=== PATIENT | female | born 1985 | race African-American/Black ===

== ENCOUNTER 2016-11-05 04:33 | Emergency (ER) | payer OTHER ==
[~2016-11-05] VITALS: Ht 154.9 cm; Wt 73.0 kg
[~2016-11-05 04:33] MED LIST: ALBUTEROL SULF8.5 GM INH; AMOXICILLIN500 MG ORAL; AZITHROMYC200 MG/5 M ORAL; AZITHROMYCIN250 MG ORAL; CLARITIN10 M2 ORAL; FLONASE1 SPRAYS NASAL; IBUPROFEN600 MG ORAL; KEFLEX500 MG ORAL; NITROFURANTOIN100 M2 ORAL; NKM; NORCO 5-325 TA1 EACH ORAL; PENICILLIN V P500 MG PO; PEPCID40 MG PO; PRENATA CHEWAB1 EACH PO; TYLENOL EXTRA500 MG ORAL; ZITHROMAX250 MG ORAL; ZYRTEC10 MG ORAL
[2016-11-05 04:53] VITALS: BP 121/79
[2016-11-05 05:39] LABS: MEAN CORPUSCULAR HEMOGLOBIN 21.9 PG (27.0-31.0); MEAN CORPUSCULAR HGB CONC 30.6 G/DL (32.0-36.0); MEAN CORPUSCULAR VOLUME 72 FL (80-99); PLATELET COUNT 79 K/UL (150-450); RED BLOOD COUNT 3.61 M/UL (4.20-5.40); RED CELL DISTRIBUTION WIDTH 14.7 % (11.6-14.8); WHITE BLOOD COUNT 3.5 K/UL (4.8-10.8)
[2016-11-05 05:54] LABS: ALANINE AMINOTRANSFERASE 14 U/L (3-33); ALBUMIN/GLOBULIN RATIO 1.2 (1.0-2.7); ANION GAP 16 (5-15); ASPARTATE AMINO TRANSFERASE 28 U/L (5-40); CALCIUM 9.2 mg/dL (8.6-10.2); CARBON DIOXIDE 23 mEQ/L (20-30); CHLORIDE 97 mEQ/L (98-107); CREATININE 0.7 mg/dL (0.5-0.9); GLOMERULAR FILTRATION RATE > 60 mL/min (>60); HEMOLYSIS 120; POTASSIUM 4.6 mEQ/L (3.4-4.9); SODIUM 136 mEQ/L (135-145); TOTAL PROTEIN 7.1 g/dL (6.6-8.7); TROPONIN I < 0.30 ng/mL (<=0.30)
[2016-11-05] MEDS: DuoNeb 0.5-3(2.5)mg/3ml neb HHN ONE ×2 (06:02→06:55)
[2016-11-05 06:04] LABS: CKMB < 1.5 ng/mL (< 3.8)
--- NOTE | 2016-11-05 06:29 | Emergency Room Report ---
History of Present Illness General Chief Complaint: Chest Pain Source: Patient (Jeff Bedolla) Present Illness HPI Patient is a 31-year-old female who presented after increased chest pressure. The patient intermittent symptoms of the past 2 days. The patient reported having increased palpitations as well as shortness of breath and chest tightness while at work. Patient had been having any vomiting or diarrhea. She denies any bleeding. Denied any fever cough. She denied prior history of asthma or any leg pain or swelling. (Jeff Bedolla) Allergies: Coded Allergies: No Known Allergies (Unverified , 08/29/12) Patient History Past Medical History: see triage record Last Menstrual Period: October Reviewed Nursing Documentation: PMH: Agreed, PSxH: Agreed (Jeff Bedolla) Nursing Documentation-PMH Past Medical History: No Stated History Hx Hypertension: No Hx Diabetes: No (Jeff Bedolla) Review of Systems All Other Systems: negative except mentioned in HPI (Jeff Bedolla) Physical Exam Vital Signs Date Time Temp Pulse Resp B/P Pulse Ox O2 Delivery O2 Flow Rate FiO2 11/05/16 04:37 97.5 81 16 118/85 100 Room Air Sp02 EP Interpretation: reviewed, normal General Appearance: normal inspection, well appearing, no apparent distress, alert, GCS 15 Head: atraumatic ENT: normal ENT inspection, hearing grossly normal, normal voice Neck: normal inspection, full range of motion, supple, no bony tend Respiratory: normal inspection, lungs clear, normal breath sounds, no respiratory distress, no retraction, no wheezing Cardiovascular #1: regular rate, rhythm, no edema Gastrointestinal: normal inspection, normal bowel sounds, non tender, soft, no guarding, no hernia Genitourinary: no CVA tenderness Musculoskeletal: normal inspection, back normal, normal range of motion Neurologic: normal inspection, alert, oriented x3, responsive, councilperson III-XII nml as tested, speech normal Psychiatric: normal inspection, judgement/insight normal, mood/affect normal Skin: normal inspection, normal color, no rash (Jeff Bedolla) Medical Decision Making Diagnostic Impression: Primary Impression: Chest pain Additional Impressions: Anemia Pancytopenia ER Course Patient presented for chest pain. Differential diagnosis included but was not limited to acute coronary syndrome, pulmonary embolism, pneumonia, aortic dissection, shingles, pneumothorax, aortic dissection, esophageal rupture, pericarditis. Because of complexity of patient's case laboratory testing and imaging studies were ordered. The patient showed no cardiac risk factors however EKG showed some slight inferior ST depression is normal sinus rhythm without acute T wave. Laboratory testing showed evidence of pancytopenia. The patient's hemoglobin was less than 8. The patient has no prior history consistent with pancytopenia.Patient was noted to be significantly anemic. Patient's symptoms are consistent with anemia related ischemia. Patient was endorsed to Dr. Gonzalez. The patient will likely be transferred. Labs Test 11/05/16 05:22 White Blood Count 3.5 K/UL (4.8-10.8) Red Blood Count 3.61 M/UL (4.20-5.40) Hemoglobin 7.9 G/DL (12.0-16.0) Hematocrit 25.9 % (37.0-47.0) Mean Corpuscular Volume 72 FL (80-99) Mean Corpuscular Hemoglobin 21.9 PG (27.0-31.0) Mean Corpuscular Hemoglobin Concent 30.6 G/DL (32.0-36.0) Red Cell Distribution Width 14.7 % (11.6-14.8) Platelet Count 79 K/UL (150-450) Mean Platelet Volume 8.0 FL (6.5-10.1) Neutrophils (%) (Auto) % (45.0-75.0) Lymphocytes (%) (Auto) % (20.0-45.0) Monocytes (%) (Auto) % (1.0-10.0) Eosinophils (%) (Auto) % (0.0-3.0) Basophils (%) (Auto) % (0.0-2.0) D-Dimer < 100 ng/mL (<500) Urine HCG, Qualitative Negative Sodium Level 136 mEQ/L (135-145) Potassium Level 4.6 mEQ/L (3.4-4.9) Chloride Level 97 mEQ/L (98-107) Carbon Dioxide Level 23 mEQ/L (20-30) Anion Gap 16 (5-15) Blood Urea Nitrogen 10 mg/dL (7-23) Creatinine 0.7 mg/dL (0.5-0.9) Estimat Glomerular Filtration Rate > 60 mL/min (>60) Glucose Level 89 mg/dL (74-106) Calcium Level 9.2 mg/dL (8.6-10.2) Total Bilirubin 0.4 mg/dL (0.0-1.2) Aspartate Amino Transf (AST/SGOT) 28 U/L (5-40) Alanine Aminotransferase (ALT/SGPT) 14 U/L (3-33) Alkaline Phosphatase 47 U/L (35-104) Total Creatine Kinase 103 U/L (26-140) Creatine Kinase MB < 1.5 ng/mL (< 3.8) Creatine Kinase MB Relative Index 1.4 Troponin I < 0.30 ng/mL (<=0.30) Total Protein 7.1 g/dL (6.6-8.7) Albumin 3.9 g/dL (3.5-5.2) Globulin 3.2 g/dL Albumin/Globulin Ratio 1.2 (1.0-2.7) Urine Opiates Screen Negative (NEGATIVE) Urine Barbiturates Screen Negative (NEGATIVE) Phencyclidine (PCP) Screen Negative (NEGATIVE) Urine Amphetamines Screen Negative (NEGATIVE) Urine Benzodiazepines Screen Negative (NEGATIVE) Urine Cocaine Screen Negative (NEGATIVE) Urine Marijuana (THC) Screen Negative (NEGATIVE) (Jeff Bedolla) ER Course Received signout from Dr Bedolla to endorse patient for transfer. Dr Huff accepted patient for transfer to [facility] at 822am Patient remains stable in ED (WESLEY GONZALEZ M.D.) EKG Diagnostic Results Rate: normal Rhythm: NSR ST Segments: no acute changes (Jeff Bedolla) Last Vital Signs Date Time Temp Pulse Resp B/P Pulse Ox O2 Delivery O2 Flow Rate FiO2 11/05/16 04:53 81 16 Room Air 11/05/16 04:53 97.5 121/79 100 Status: unchanged (Jeff Bedolla) Status: improved (WESLEY GONZALEZ M.D.) Disposition: XFER SHT-TRM HOSP Condition: Serious Referrals: [facility],REFERRING (PCP) Jeff Bedolla November 05, 2016 06:29 WESLEY GONZALEZ M.D. November 05, 2016 08:22
[2016-11-05 07:43] VITALS: BP 121/66
--- NOTE | 2016-11-05 08:45 | Diagnostic Imaging Report ---
Indication: Shortness of breath Technique: Single AP view of the chest. Findings: Comparison: None. The bones and extra pulmonary soft tissues, cardiomediastinal silhouette, pulmonary vasculature and parenchyma, and pleural surfaces are unremarkable. IMPRESSION: Negative AP chest.
[2016-11-05 09:30] VITALS: BP 123/76
[2016-11-05 11:32] VITALS: BP 125/72
[2016-11-05 11:39] VITALS: BP 125/72
--- NOTE | 2016-11-05 15:57 | Cardiology Report ---
APPROVED REPORT EKG Measurement Heart [id number] Normal sinus rhythm Nonspecific T wave abnormality Abnormal ECG
== END 2016-11-05 11:47 | disposition short-term general hospital (02) ==
LOC: EMR 04:55
DX: R07.9 Chest pain, unspecified (principal); D64.9 Anemia, unspecified; D61.818 Other pancytopenia
CPT/HCPCS: 36415; 71010; 80053; 80300; 81025; 82550; 82553; 84484; 85025; 85379; 93005; 94640; 94664; J7620

== ENCOUNTER 2016-11-10 23:45 | Emergency (ER) | payer OTHER ==
[~2016-11-10] VITALS: Ht 154.9 cm; Wt 72.6 kg
[2016-11-11] MEDS ORDERED: IRON325 M1 PO (00:04)
[2016-11-11 00:15] VITALS: BP 123/84
[2016-11-11] MEDS ORDERED: Metoclopramide 10mg/2ml Inj IVP ONE (00:45)
[2016-11-11] MEDS ORDERED: Morphine Sulfate 2mg/ml Inj IVP ONE (00:45)
[2016-11-11] MEDS ORDERED: DiphenhydrAMINE 50mg/ml Inj IVP ONE (00:45)
[2016-11-11 01:06] LABS: APPEARANCE,URINE CLEAR; KETONES,URINE NEGATIVE (NEGATIVE); LEUKOCYTE ESTERASE ,URINE 1+ (NEGATIVE); NITRITE,URINE NEGATIVE (NEGATIVE); PH,URINE 6.5 (4.5-8.0); PROTEIN,URINE 2+ (NEGATIVE); UROBILINOGEN,URINE NORMAL MG/DL (0.0-1.0)
[2016-11-11 01:09] LABS: BASOPHILS % (AUTO) 0.2 % (0.0-2.0); EOSINOPHILS % (AUTO) 0.5 % (0.0-3.0); LYMPHOCYTES % (AUTO) 15.5 % (20.0-45.0); MEAN CORPUSCULAR HGB CONC 31.3 G/DL (32.0-36.0); MEAN CORPUSCULAR VOLUME 73 FL (80-99); MEAN PLATELET VOLUME 6.5 FL (6.5-10.1); MONOCYTES % (AUTO) 6.2 % (1.0-10.0); NEUTROPHILS % (AUTO) 77.6 % (45.0-75.0); PLATELET COUNT 200 K/UL (150-450); RED BLOOD COUNT 3.96 M/UL (4.20-5.40); RED CELL DISTRIBUTION WIDTH 17.3 % (11.6-14.8); WHITE BLOOD COUNT 9.3 K/UL (4.8-10.8)
[2016-11-11 01:20] LABS: BACTERIA,URINE FEW /HPF; MUCUS,URINE MANY /LPF (NONE/OCC); SQUAMOUS EPITHELIAL CELL,UR MODERATE /LPF (NONE/OCC)
[2016-11-11 01:21] LABS: ALANINE AMINOTRANSFERASE 25 U/L (3-33); ALBUMIN/GLOBULIN RATIO 1.2 (1.0-2.7); ANION GAP 18 (5-15); ASPARTATE AMINO TRANSFERASE 20 U/L (5-40); CALCIUM 9.1 mg/dL (8.6-10.2); CARBON DIOXIDE 23 mEQ/L (20-30); CHLORIDE 98 mEQ/L (98-107); CREATININE 0.5 mg/dL (0.5-0.9); GLOMERULAR FILTRATION RATE > 60 mL/min (>60); HEMOLYSIS 2; LIPASE 25 U/L (< 60); POTASSIUM 3.9 mEQ/L (3.4-4.9); SODIUM 139 mEQ/L (135-145); TOTAL PROTEIN 7.7 g/dL (6.6-8.7)
[2016-11-11] MEDS ORDERED: ACETAMINOPHEN-1 EAC1 ORAL (01:42)
[2016-11-11] MEDS ORDERED: ZOFRAN ODT4 MG ORAL (01:42)
[2016-11-11 02:15] VITALS: BP 125/81
[2016-11-11 02:20] VITALS: BP 125/81
--- NOTE | 2016-11-11 03:51 | Emergency Room Report ---
History of Present Illness General Chief Complaint: Abdominal Pain Source: Patient Present Illness HPI Patient presents with complaints of epigastric discomfort and cramping She has also had several bouts of vomiting and diarrhea since early this evening denies any fevers or chills Denies any chest pressures of breath Denies any back or flank pain Patient was recently in the hospital here Was transferred to [place] and was discharged about 2 days ago Denies any rash Allergies: Coded Allergies: No Known Allergies (Unverified , 11/11/16) Patient History Past Medical History: see triage record Pertinent Family History: none Last Menstrual Period: 10/26/16 Now: No Reviewed Nursing Documentation: PMH: Agreed, PSxH: Agreed Nursing Documentation-PMH Past Medical History: No Stated History Hx Hypertension: No Hx Diabetes: No Review of Systems All Other Systems: negative except mentioned in HPI Physical Exam Vital Signs Date Time Temp Pulse Resp B/P Pulse Ox O2 Delivery O2 Flow Rate FiO2 11/10/16 23:59 98.2 98 16 123/84 99 Room Air Sp02 EP Interpretation: reviewed, normal General Appearance: well appearing, no apparent distress Head: normocephalic, atraumatic Eyes: bilateral eye EOMI, bilateral eye PERRL ENT: hearing grossly normal, normal pharynx, TMs + canals normal, uvula midline Neck: full range of motion, supple, no meningismus, no bony tend Respiratory: lungs clear, normal breath sounds, no rhonchi, no respiratory distress, no retraction, no accessory muscle use Cardiovascular #1: normal peripheral pulses, regular rate, rhythm, no edema, no gallop, no JVD, no murmur Gastrointestinal: normal bowel sounds, non tender, soft, no mass, no organomegaly, non-distended, no guarding, no hernia, no pulsatile mass, no rebound Genitourinary: no CVA tenderness Musculoskeletal: normal inspection Neurologic: oriented x3, responsive, copper plate lithographer III-XII nml as tested, motor strength/ tone normal, sensory intact Psychiatric: mood/affect normal Skin: normal color, no rash, warm/dry, palpation normal Lymphatic: normal inspection, no adenopathy Medical Decision Making Diagnostic Impression: Primary Impression: Abdominal pain ER Course With the patient's history and examination, multiple differentials considered, including but not limited to , ectopic , ovarian torsion, gastritis, cholecystitis, pancreatitis, appendicitis Patient's blood work appears appropriate compared to previous hemoglobin count is also better Given the epigastric discomfort with the lack of any lower abdominal pathology on reevaluation Further imaging was not obtained and the patient will have initial conservative outpatient trial Labs Test 11/11/16 00:30 White Blood Count 9.3 K/UL (4.8-10.8) Red Blood Count 3.96 M/UL (4.20-5.40) Hemoglobin 9.1 G/DL (12.0-16.0) Hematocrit 29.1 % (37.0-47.0) Mean Corpuscular Volume 73 FL (80-99) Mean Corpuscular Hemoglobin 23.0 PG (27.0-31.0) Mean Corpuscular Hemoglobin Concent 31.3 G/DL (32.0-36.0) Red Cell Distribution Width 17.3 % (11.6-14.8) Platelet Count 200 K/UL (150-450) Mean Platelet Volume 6.5 FL (6.5-10.1) Neutrophils (%) (Auto) 77.6 % (45.0-75.0) Lymphocytes (%) (Auto) 15.5 % (20.0-45.0) Monocytes (%) (Auto) 6.2 % (1.0-10.0) Eosinophils (%) (Auto) 0.5 % (0.0-3.0) Basophils (%) (Auto) 0.2 % (0.0-2.0) Urine Color Pale yellow Urine Appearance Clear Urine pH 6.5 (4.5-8.0) Urine Specific [place] 1.020 (1.005-1.035) Urine Protein 2+ (NEGATIVE) Urine Glucose (UA) Negative (NEGATIVE) Urine Ketones Negative (NEGATIVE) Urine Occult Blood 3+ (NEGATIVE) Urine Nitrite Negative (NEGATIVE) Urine Bilirubin Negative (NEGATIVE) Urine Urobilinogen Normal MG/DL (0.0-1.0) Urine Leukocyte Esterase 1+ (NEGATIVE) Urine RBC 5-10 /HPF (0 - 2) Urine WBC 2-4 /HPF (0 - 2) Urine Squamous Epithelial Cells Moderate /LPF (NONE/OCC) Urine Bacteria Few /HPF (NONE) Urine Mucus Many /LPF (NONE/OCC) Urine HCG, Qualitative Negative Sodium Level 139 mEQ/L (135-145) Potassium Level 3.9 mEQ/L (3.4-4.9) Chloride Level 98 mEQ/L (98-107) Carbon Dioxide Level 23 mEQ/L (20-30) Anion Gap 18 (5-15) Blood Urea Nitrogen 10 mg/dL (7-23) Creatinine 0.5 mg/dL (0.5-0.9) Estimat Glomerular Filtration Rate > 60 mL/min (>60) Glucose Level 101 mg/dL (74-106) Calcium Level 9.1 mg/dL (8.6-10.2) Total Bilirubin 0.5 mg/dL (0.0-1.2) Aspartate Amino Transf (AST/SGOT) 20 U/L (5-40) Alanine Aminotransferase (ALT/SGPT) 25 U/L (3-33) Alkaline Phosphatase 51 U/L (35-104) Total Protein 7.7 g/dL (6.6-8.7) Albumin 4.3 g/dL (3.5-5.2) Globulin 3.4 g/dL Albumin/Globulin Ratio 1.2 (1.0-2.7) Lipase 25 U/L (< 60) Last Vital Signs Date Time Temp Pulse Resp B/P Pulse Ox O2 Delivery O2 Flow Rate FiO2 11/11/16 02:20 98.0 81 18 125/81 100 Room Air Status: improved Disposition: HOME, SELF-CARE Condition: Improved Scripts Ondansetron Odt* (ZOFRAN ODT*) 4 Mg Tab.rapdis 4 MG ORAL Q6H Y for Nausea & Vomiting, #15 TAB 0 Refills Prov: MARZENA FRANCIS D.O. 11/11/16 Acetaminophen With Codeine (T#3) (TYLENOL #3 TAB*) Y Tab 1 TAB ORAL Q8H Y for For Pain, #12 TAB Prov: MARZENA FRANCIS D.O. 11/11/16 [facility]ERR[facility] (PCP) Patient Instructions: Abdominal Pain, Adult Additional Instructions: Patient is provided with the discharge instructions notified to follow up with primary doctor in the next 2-3 days otherwise return to the er with any worsening symptoms. Please note that this report is being documented using DRAGON technology. This can lead to erroneous entry secondary to incorrect interpretation by the dictating instrument. MARZENA FRANCIS D.O. November 11, 2016 03:51
== END 2016-11-11 02:22 | disposition home or self-care (01) ==
LOC: EMR 23:59
DX: R10.13 Epigastric pain (principal); R19.7 Diarrhea, unspecified; R11.10 Vomiting, unspecified
CPT/HCPCS: 36415; 80053; 81003; 81025; 83690; 85025; 96360; 96374; 96375; 99284; J1200; J2270; J2765

== ENCOUNTER 2017-01-08 11:37 | Emergency (ER) | payer OTHER ==
[~2017-01-08] VITALS: Ht 154.9 cm; Wt 70.3 kg
[~2017-01-08 11:37] MED LIST changes: +ACETAMINOPHEN-1 EAC1 ORAL; +IRON325 M1 PO; +ZOFRAN ODT4 MG ORAL
[2017-01-08] MEDS ORDERED: Morphine Sulfate 4mg/ml Inj IVP ONE (12:00)
[2017-01-08 12:31] VITALS: BP 125/77
[2017-01-08 12:35] LABS: MEAN CORPUSCULAR HEMOGLOBIN 22.8 PG (27.0-31.0); MEAN CORPUSCULAR VOLUME 76 FL (80-99); PLATELET COUNT 315 K/UL (150-450); RED BLOOD COUNT 4.89 M/UL (4.20-5.40); RED CELL DISTRIBUTION WIDTH 15.8 % (11.6-14.8); WHITE BLOOD COUNT 7.1 K/UL (4.8-10.8)
[2017-01-08 12:36] LABS: BASOPHILS % (AUTO) 0.5 % (0.0-2.0); EOSINOPHILS % (AUTO) 2.5 % (0.0-3.0); LYMPHOCYTES % (AUTO) 30.7 % (20.0-45.0); MONOCYTES % (AUTO) 7.3 % (1.0-10.0)
[2017-01-08 12:42] LABS: INR 0.9 (0.9-1.1); PROTHROMBIN TIME 9.7 SEC (9.30-11.50)
[2017-01-08 12:51] LABS: ALANINE AMINOTRANSFERASE 17 U/L (3-33); ALBUMIN/GLOBULIN RATIO 1.3 (1.0-2.7); ANION GAP 10 (5-15); ASPARTATE AMINO TRANSFERASE 15 U/L (5-40); CALCIUM 9.4 mg/dL (8.6-10.2); CARBON DIOXIDE 27 mEQ/L (20-30); CHLORIDE 103 mEQ/L (98-107); CREATININE 0.9 mg/dL (0.5-0.9); GLOMERULAR FILTRATION RATE > 60 mL/min (>60); HEMOLYSIS 4; LIPASE 22 U/L (< 60); POTASSIUM 4.4 mEQ/L (3.4-4.9); SODIUM 140 mEQ/L (135-145); TOTAL PROTEIN 7.6 g/dL (6.6-8.7)
[2017-01-08 13:05] LABS: APPEARANCE,URINE TURBID; KETONES,URINE NEGATIVE (NEGATIVE); LEUKOCYTE ESTERASE ,URINE 1+ (NEGATIVE); NITRITE,URINE NEGATIVE (NEGATIVE); PH,URINE 8 (4.5-8.0); PROTEIN,URINE 4+ (NEGATIVE); UROBILINOGEN,URINE NORMAL MG/DL (0.0-1.0)
[2017-01-08 13:25] LABS: BACTERIA,URINE FEW /HPF; RBC,URINE TNTC /HPF (0 - 2); SQUAMOUS EPITHELIAL CELL,UR FEW /LPF (NONE/OCC)
[2017-01-08 14:27] VITALS: BP 117/81
[2017-01-08] MEDS ORDERED: ACETAMINOPHEN-1 EAC1 ORAL (14:38)
--- NOTE | 2017-01-09 07:58 | Emergency Room Report ---
History of Present Illness General Chief Complaint: Vaginal Source: Patient Present Illness HPI 31-year-old female presents ED for evaluation. States that she's been having increased vaginal bleeding for the last 2 weeks. States that it started with her period which was normal but after the period resolved she had increased vaginal bleeding. Notes cramping abdominal pain, 6/10, nonradiating. Denies nausea and vomiting. Denies fevers or chills. Denies vaginal discharge. States she is not . No other aggravating or relieving factors. Denies any other associated symptoms Allergies: Coded Allergies: No Known Allergies (Unverified , 11/11/16) Patient History Past Medical History: none Past Surgical History: none Pertinent Family History: none Social History: Denies: alcohol use, drug use, smoking Now: No Immunizations: UTD Reviewed Nursing Documentation: PMH: Agreed, PSxH: Agreed Nursing Documentation-PMH Past Medical History: No Stated History Hx Hypertension: No Hx Diabetes: No Review of Systems All Other Systems: negative except mentioned in HPI Physical Exam Vital Signs Date Time Temp Pulse Resp B/P Pulse Ox O2 Delivery O2 Flow Rate FiO2 01/08/17 11:42 98.2 91 20 120/86 98 Room Air Sp02 EP Interpretation: reviewed, normal General Appearance: no apparent distress, alert, GCS 15, non-toxic Head: normocephalic, atraumatic Eyes: bilateral eye PERRL, bilateral eye normal inspection ENT: hearing grossly normal, normal pharynx, no angioedema, normal voice Neck: full range of motion, supple/symm/no masses Respiratory: chest non-tender, lungs clear, normal breath sounds, speaking full sentences Cardiovascular #1: regular rate, rhythm, no edema Cardiovascular #2: 2+ carotid (R), 2+ carotid (L), 2+ radial (R), 2+ radial (L) , 2+ dorsalis pedis (R), 2+ dorsalis pedis (L) Gastrointestinal: normal bowel sounds, non tender, soft, non-distended, no guarding, no rebound Rectal: deferred Genitourinary: normal inspection, no CVA tenderness Musculoskeletal: back normal, gait/station normal, normal range of motion, non- tender Neurologic: alert, oriented x3, responsive, motor strength/tone normal, sensory intact, speech normal Psychiatric: judgement/insight normal, memory normal, mood/affect normal, no suicidal/homicidal ideation Reflexes: 3+ bicep (R), 3+ bicep (L), 3+ tricep (R), 3+ tricep (L), 3+ knee (R) , 3+ knee (L) Skin: normal color, no rash, warm/dry, well hydrated Lymphatic: no adenopathy Medical Decision Making Diagnostic Impression: Primary Impression: Fibroids Qualified Codes: D25.9 - Leiomyoma of uterus, unspecified ER Course Hospital Course 31-year-old female presents to ED complaining of lower abdominal pain + vaginal bleeding x 2 week Differential diagnoses include: gastrits, gastroenterits, ectopic , ovarian torsion/cyst, UTI Clinical course Patient placed on stretcher in ED. After initial history and physical I ordered labs, IV fluids and pain meds and pelvic ultrasound. Labs-no leukocytosis, hb/hct stable, electrolytes okay, beta hCG negative, UA negative Pelvic ultrasound- multiple large fibroids Discussed case with MARBLE MACHINE OPERATOR. Did not believe medications like Provera will help the patient. In fact may make the bleeding worse. Recommends that given stable vitals and normal hemoglobin the patient followup with MARBLE MACHINE OPERATOR for outpatient workup Discussed findings with patient. Agrees with assessment and will followup with her MARBLE MACHINE OPERATOR Diagnosis - fibroids Stable and discharged to home with Rx Tylenol. Followup with PMD/MARBLE MACHINE OPERATOR. Return to ED if symptoms recur or worsen Labs Test 01/08/17 12:20 01/08/17 12:37 White Blood Count 7.1 K/UL (4.8-10.8) Red Blood Count 4.89 M/UL (4.20-5.40) Hemoglobin 11.1 G/DL (12.0-16.0) Hematocrit 37.1 % (37.0-47.0) Mean Corpuscular Volume 76 FL (80-99) Mean Corpuscular Hemoglobin 22.8 PG (27.0-31.0) Mean Corpuscular Hemoglobin Concent 30.0 G/DL (32.0-36.0) Red Cell Distribution Width 15.8 % (11.6-14.8) Platelet Count 315 K/UL (150-450) Mean Platelet Volume 6.0 FL (6.5-10.1) Neutrophils (%) (Auto) 59.0 % (45.0-75.0) Lymphocytes (%) (Auto) 30.7 % (20.0-45.0) Monocytes (%) (Auto) 7.3 % (1.0-10.0) Eosinophils (%) (Auto) 2.5 % (0.0-3.0) Basophils (%) (Auto) 0.5 % (0.0-2.0) Prothrombin Time 9.7 SEC (9.30-11.50) Prothromb Time International Ratio 0.9 (0.9-1.1) Activated Partial Thromboplast Time 28 SEC (23-33) Sodium Level 140 mEQ/L (135-145) Potassium Level 4.4 mEQ/L (3.4-4.9) Chloride Level 103 mEQ/L (98-107) Carbon Dioxide Level 27 mEQ/L (20-30) Anion Gap 10 (5-15) Blood Urea Nitrogen 11 mg/dL (7-23) Creatinine 0.9 mg/dL (0.5-0.9) Estimat Glomerular Filtration Rate > 60 mL/min (>60) Glucose Level 111 mg/dL (74-106) Calcium Level 9.4 mg/dL (8.6-10.2) Total Bilirubin 0.4 mg/dL (0.0-1.2) Aspartate Amino Transf (AST/SGOT) 15 U/L (5-40) Alanine Aminotransferase (ALT/SGPT) 17 U/L (3-33) Alkaline Phosphatase 50 U/L (35-104) Total Protein 7.6 g/dL (6.6-8.7) Albumin 4.4 g/dL (3.5-5.2) Globulin 3.2 g/dL Albumin/Globulin Ratio 1.3 (1.0-2.7) Lipase 22 U/L (< 60) Urine Color Red Urine Appearance Turbid Urine pH 8 (4.5-8.0) Urine Specific [place] 1.010 (1.005-1.035) Urine Protein 4+ (NEGATIVE) Urine Glucose (UA) 1+ (NEGATIVE) Urine Ketones Negative (NEGATIVE) Urine Occult Blood 5+ (NEGATIVE) Urine Nitrite Negative (NEGATIVE) Urine Bilirubin Negative (NEGATIVE) Urine Urobilinogen Normal MG/DL (0.0-1.0) Urine Leukocyte Esterase 1+ (NEGATIVE) Urine RBC Tntc /HPF (0 - 2) Urine WBC 2-4 /HPF (0 - 2) Urine Squamous Epithelial Cells Few /LPF (NONE/OCC) Urine Bacteria Few /HPF (NONE) Urine HCG, Qualitative Negative CT/MRI/US Diagnostic Results CT/MRI/US Diagnostic Results : Imaging Test Ordered: pelvic uS Impression large multiple fibroids in uterus Last Vital Signs Date Time Temp Pulse Resp B/P Pulse Ox O2 Delivery O2 Flow Rate FiO2 01/08/17 14:27 98.9 85 18 117/81 98 Room Air Status: improved Disposition: HOME, SELF-CARE Condition: Stable Scripts Acetaminophen With Codeine (T#3) (TYLENOL #3 TAB*) Y Tab 1 TAB ORAL Q8H Y for For Pain, #20 TAB Prov: ITALO ESTRELLA M.D. 01/08/17 Referrals: [facility],REFERRING (PCP) Patient Instructions: Uterine Fibroids, [id number] ITALO ESTRELLA M.D. Jan 09, 2017 07:58
--- NOTE | 2017-01-11 08:38 | Diagnostic Imaging Report ---
Indication:Lower abdominal and pelvic pain Technique: Grayscale and duplex Doppler imaging of the pelvis performed utilizing a transabdominal scan and endovaginal scan. Comparison: None Findings: There are multiple masses in the uterus consistent fibroids. One prominent mass is noted and somewhat exophytic involving the uterine fundus measuring about 6 x 4 cm. Another heterogeneous more echogenic appearing mass measuring 5.9 x 6.8 cm x 7.8 cm. The endometrium is not well seen on this study. The ovaries appear normal. Uterus measures 14 x 9.7 x 0.7 cm. Right ovary 3.8 x 5 x 1.8 cm. Left ovary 3.9 x 4.9 x 2.8 cm. Impression: Multiple uterine fibroids. Non-evaluation of the endometrium which was not visualized on this exam. Unremarkable ovaries
== END 2017-01-08 14:30 | disposition home or self-care (01) ==
LOC: EMR 12:20
DX: D25.9 Leiomyoma of uterus, unspecified (principal)
CPT/HCPCS: 36415; 76856; 80053; 81003; 81025; 83690; 85025; 85610; 85730; 86850; 86900; 86901; 96360; 96361

== ENCOUNTER 2017-03-15 20:03 | Emergency (ER) | payer MEDICAID, OTHER ==
[~2017-03-15] VITALS: Ht 154.9 cm; Wt 72.1 kg
[2017-03-15 21:07] VITALS: BP 118/75
[2017-03-15] MEDS ORDERED: Norco 5mg/325mg tab ORAL ONE (21:30)
[2017-03-15 22:07] LABS: APPEARANCE,URINE SLIGHTLY CLOUDY; KETONES,URINE NEGATIVE (NEGATIVE); LEUKOCYTE ESTERASE ,URINE NEGATIVE (NEGATIVE); NITRITE,URINE NEGATIVE (NEGATIVE); PH,URINE 8 (4.5-8.0); PROTEIN,URINE NEGATIVE (NEGATIVE); UROBILINOGEN,URINE NORMAL MG/DL (0.0-1.0)
[2017-03-15 22:29] LABS: AMORPHOUS SEDIMENT,UR MODERATE /LPF; BACTERIA,URINE FEW /HPF; RBC,URINE 0-2 /HPF (0 - 2); SQUAMOUS EPITHELIAL CELL,UR FEW /LPF (NONE/OCC); WBC,URINE 0-2 /HPF (0 - 2)
--- NOTE | 2017-03-15 22:41 | Emergency Room Report ---
History of Present Illness General Chief Complaint: Abdominal Pain Source: Patient Present Illness HPI Is a 31-year-old female who had a history of severe fibroid and bleeding. She had a partial hysterectomy done about 3 weeks ago. For the last week or so, she 's been having increasing pain. Worse when she walked. No bleeding. No fever or chills. Pain is crampy and sharp in nature. Localized the lower abdomen. Denies any other complaint. Pain is 8/10. Allergies: Coded Allergies: No Known Allergies (Unverified , 11/11/16) Patient History Past Medical History: see triage record, old chart reviewed Past Surgical History: hysterectomy Pertinent Family History: none Social History: Denies: smoking Last Menstrual Period: JANUARY 25 Now: No Immunizations: other Reviewed Nursing Documentation: PMH: Agreed, PSxH: Agreed Nursing Documentation-PMH Hx Hypertension: No Hx Diabetes: No Review of Systems Eye: Denies: eye pain, blurred vision ENT: Denies: ear pain, nose congestion, throat swelling Respiratory: Denies: cough, shortness of breath Cardiovascular: Denies: chest pain, palpitations Gastrointestinal: Reports: abdominal pain, Denies: diarrhea, nausea, vomiting Musculoskeletal: Denies: back pain, joint pain Skin: Denies: rash Neurological: Denies: headache, numbness Endocrine: Denies: increased thirst, increased urine Hematologic/Lymphatic: Denies: easy bruising All Other Systems: negative except mentioned in HPI Physical Exam Vital Signs Date Time Temp Pulse Resp B/P (MAP) Pulse Ox O2 Delivery O2 Flow Rate FiO2 03/15/17 20:47 98.1 94 20 118/75 98 03/15/17 21:07 Room Air vitals anne Sp02 EP Interpretation: reviewed, normal General Appearance: well appearing, no apparent distress, alert Head: normocephalic, atraumatic Eyes: bilateral eye PERRL, bilateral eye EOMI ENT: hearing grossly normal, normal pharynx Neck: full range of motion, supple, no meningismus Respiratory: chest non-tender, lungs clear, normal breath sounds Cardiovascular #1: regular rate, rhythm, no murmur Gastrointestinal: normal bowel sounds, non tender, no mass, no organomegaly, no bruit, non-distended, tenderness - Mild, lower quadrants. Musculoskeletal: back normal, gait/station normal, normal range of motion Psychiatric: mood/affect normal Skin: warm/dry Medical Decision Making Diagnostic Impression: Primary Impression: Abdominal pain Qualified Codes: R10.84 - Generalized abdominal pain Additional Impressions: Constipation Qualified Codes: K59.00 - Constipation, unspecified Anemia Qualified Codes: D64.9 - Anemia, unspecified ER Course Patient with abdominal pain status post surgery. This may be secondary to constipation and gas buildup. She doesn't do to having constipation. No acute abdomen. No obstruction. We'll discharge home. Lab Results Impression labs normal CT/MRI/US Diagnostic Results CT/MRI/US Diagnostic Results : Imaging Test Ordered: CT abdomen and pelvis Impression Comparison: Pelvic and transvaginal ultrasound January 09, 2000. Mildly patulous gas-filled esophagus has normal morphology. Large colonic stool burden and scattered fecal contents of the small bowel, which may indicate slow transit. Question constipation. Prominent left greater than right ovary, may be related to follicular cyst. Radiologist: Ermelinda Frye M.D. Last Vital Signs Date Time Temp Pulse Resp B/P (MAP) Pulse Ox O2 Delivery O2 Flow Rate FiO2 03/15/17 21:07 98.1 85 20 118/75 98 Room Air Status: improved Disposition: HOME, SELF-CARE Condition: Stable Scripts Lactulose (LACTULOSE*) 20 Gm/30 Ml Solution 30 ML ORAL BID, #240 ML 0 Refills Prov: FARIDA NARAYANAN M.D. 03/15/17 Additional Instructions: Increase fluid. Increase fiber. May use [id number] enema. Followup with your Dr. in 7 days. Return if worse. FARIDA NARAYANAN M.D. Mar 15, 2017 22:41
[2017-03-15 22:45] LABS: BASOPHILS % (AUTO) 1.3 % (0.0-2.0); EOSINOPHILS % (AUTO) 3.2 % (0.0-3.0); LYMPHOCYTES % (AUTO) 29.6 % (20.0-45.0); MEAN CORPUSCULAR HEMOGLOBIN 19.9 PG (27.0-31.0); MEAN CORPUSCULAR HGB CONC 29.5 G/DL (32.0-36.0); MEAN CORPUSCULAR VOLUME 67 FL (80-99); MEAN PLATELET VOLUME 5.1 FL (6.5-10.1); MONOCYTES % (AUTO) 6.3 % (1.0-10.0); NEUTROPHILS % (AUTO) 59.6 % (45.0-75.0); PLATELET COUNT 280 K/UL (150-450); WHITE BLOOD COUNT 8.6 K/UL (4.8-10.8)
[2017-03-15 22:49] LABS: ALANINE AMINOTRANSFERASE 14 U/L (3-33); ALBUMIN/GLOBULIN RATIO 1.3 (1.0-2.7); ANION GAP 14 (5-15); ASPARTATE AMINO TRANSFERASE 15 U/L (5-40); CALCIUM 9.6 mg/dL (8.6-10.2); CARBON DIOXIDE 24 mEQ/L (20-30); CHLORIDE 99 mEQ/L (98-107); CREATININE 0.6 mg/dL (0.5-0.9); GLOMERULAR FILTRATION RATE > 60 mL/min (>60); HEMOLYSIS 18; LIPASE 19 U/L (< 60); POTASSIUM 4.3 mEQ/L (3.4-4.9); SODIUM 137 mEQ/L (135-145); TOTAL PROTEIN 7.7 g/dL (6.6-8.7)
[2017-03-15] MEDS ORDERED: LACTULOSE20 GM/301 ORAL (22:51)
[2017-03-15 23:00] VITALS: BP_SYST 118; BP_SYST 119; BP_DIAS 72; BP_DIAS 75
--- NOTE | 2017-03-16 09:29 | Diagnostic Imaging Report ---
Indication: Abdominal pain Technique: Continuous helical transaxial imaging of the abdomen and pelvis was obtained from the lung bases to the pubic symphysis. No intravenous contrast was administered. Coronal 2-D reformats were also obtained. Total Dose length Product (DLP): [address] Dose Index Volume (CTDIvol): 17.5, 0.15 mGy Comparison: none Findings: The gallbladder is contracted. The lung bases are clear. The study is significantly limited by the absence of intravenous contrast. No oral contrast was administered as well. There is no free fluid or free identified seen. The uterus has been removed. There is a scar in the lower abdominal wall. Both ovaries are seen and appear slightly enlarged. Ovaries are not evaluated adequately nor any of the solid organs on noncontrast imaging. Small nodes are seen in the right lower quadrant mesentery. There is no compelling evidence for abdominal or pelvic abscess. No evidence of bowel obstruction. Impression: Status post hysterectomy. No obvious abscess though evaluation is limited. Significant limitation on this examination due to the lack of intravenous and oral contrast material. The CT scanner at [facility] is accredited by the [employer] and the scans are performed using dose optimization techniques as appropriate to a performed exam including Automatic Exposure control.
== END 2017-03-15 23:20 | disposition home or self-care (01) ==
LOC: EMR 23:02
DX: R10.84 Generalized abdominal pain (principal); K59.00 Constipation, unspecified; D64.9 Anemia, unspecified; Z90.710 Acquired absence of both cervix and uterus
CPT/HCPCS: 36415; 74176; 80053; 81003; 83690; 85025; 99284

== ENCOUNTER 2017-07-06 12:21 | Emergency (ER) | payer MEDICAID ==
[~2017-07-06] VITALS: Ht 154.9 cm; Wt 73.5 kg
[~2017-07-06 12:21] MED LIST changes: +LACTULOSE20 GM/301 ORAL
[2017-07-06 13:41] LABS: APPEARANCE,URINE SLIGHTLY CLOUDY; BILIRUBIN, URINE NEGATIVE (NEGATIVE); COLOR,URINE PALE YELLOW; GLUCOSE, URINE (UA) NEGATIVE (NEGATIVE); KETONES,URINE NEGATIVE (NEGATIVE); LEUKOCYTE ESTERASE ,URINE 2+ (NEGATIVE); NITRITE,URINE NEGATIVE (NEGATIVE); PH,URINE 5 (4.5-8.0); PROTEIN,URINE NEGATIVE (NEGATIVE); UROBILINOGEN,URINE NORMAL MG/DL (0.0-1.0)
[2017-07-06 13:44] LABS: EOSINOPHILS % (AUTO) 2.3 % (0.0-3.0); HEMATOCRIT 40.2 % (37.0-47.0); HEMOGLOBIN 11.6 G/DL (12.0-16.0); MEAN CORPUSCULAR VOLUME 68 FL (80-99); MONOCYTES % (AUTO) 7.4 % (1.0-10.0); NEUTROPHILS % (AUTO) 57.4 % (45.0-75.0); PLATELET COUNT 360 K/UL (150-450); WHITE BLOOD COUNT 7.5 K/UL (4.8-10.8)
[2017-07-06 13:50] LABS: ANION GAP 10 mmol/L (5-15); BLOOD UREA NITROGEN 11 mg/dL (7-18); CALCIUM 8.4 MG/DL (8.5-10.1); CARBON DIOXIDE 28 MMOL/L (21-32); CHLORIDE 101 MMOL/L (98-107); CREATININE 0.6 MG/DL (0.55-1.30); POTASSIUM 3.4 MMOL/L (3.5-5.1); SODIUM 139 MMOL/L (136-145)
[2017-07-06 13:54] LABS: INR 0.9 (0.9-1.1)
[2017-07-06 14:06] LABS: ALANINE AMINOTRANSFERASE 25 U/L (12-78); ALBUMIN 4.3 G/DL (3.4-5.0); ALBUMIN/GLOBULIN RATIO 0.9 (1.0-2.7); ALKALINE PHOSPHATASE 71 U/L (46-116); ASPARTATE AMINO TRANSFERASE 13 U/L (15-37); BILIRUBIN,TOTAL 0.5 MG/DL (0.2-1.0); CKMB < 0.5 NG/ML (0.0-3.6)
[2017-07-06] MEDS ORDERED: Metoclopramide 10mg/2ml Inj IVP ONE (14:30)
[2017-07-06] MEDS ORDERED: Ketorolac 30mg Inj IV ONE (14:30)
[2017-07-06] MEDS ORDERED: NITROFURANTOIN100 M2 ORAL (14:48)
[2017-07-06] MEDS ORDERED: IBUPROFEN600 MG ORAL (14:48)
[2017-07-06] MEDS ORDERED: ACETAMINOPHEN-1 EAC1 ORAL (14:48)
[2017-07-06 15:07] VITALS: BP 117/80
[2017-07-06 15:08] VITALS: BP 117/80
--- NOTE | 2017-07-06 22:45 | Emergency Room Report ---
History of Present Illness General Chief Complaint: General Complaint Source: Patient Present Illness HPI The patient is a 32-year-old female presenting for headache and chest pain since yesterday. She admits to history of anemia but denies other medical history. She was seen here for this same complaint several months prior and was transferred due to significant anemia. She states that she had an echocardiogram done at that time which was unremarkable. Pain is now a 7/10 dull ache to the back of the head and does not radiate. No known provoking relieving factors. Also experiencing a 5/10 dull ache to the mid chest. This is constant. She denies other symptoms including N, V, F, chills, abd pain, numbness, blurred vision, dizziness Allergies: Coded Allergies: No Known Allergies (Unverified , 11/11/16) Patient History Past Medical History: see triage record Pertinent Family History: none Last Menstrual Period: January 25, 2017. Now: No - Hysterectomy 02/2017 Reviewed Nursing Documentation: PMH: Agreed, PSxH: Agreed Nursing Documentation-PMH Hx Hypertension: No Hx Diabetes: No Review of Systems All Other Systems: negative except mentioned in HPI Physical Exam Vital Signs Date Time Temp Pulse Resp B/P (MAP) Pulse Ox O2 Delivery O2 Flow Rate FiO2 07/06/17 12:45 98.1 90 20 117/80 99 Room Air Sp02 EP Interpretation: reviewed, normal General Appearance: no apparent distress, alert, GCS 15, non-toxic Head: normocephalic, atraumatic Eyes: bilateral eye normal inspection, bilateral eye PERRL ENT: hearing grossly normal, normal pharynx, no angioedema, normal voice, uvula midline Neck: full range of motion, supple/symm/no masses Respiratory: chest non-tender, lungs clear, normal breath sounds, no wheezing, speaking full sentences Cardiovascular #1: regular rate, rhythm, no edema, no murmur, no rub Gastrointestinal: normal bowel sounds, non tender, soft, non-distended, no guarding, no rebound Musculoskeletal: back normal, gait/station normal, normal range of motion, non- tender, calf tenderness Neurologic: alert, oriented x3, responsive, motor strength/tone normal, sensory intact, speech normal Psychiatric: judgement/insight normal, memory normal, mood/affect normal, no suicidal/homicidal ideation Skin: normal color, no rash, warm/dry, well hydrated Lymphatic: no adenopathy Medical Decision Making PA Attestation Dr. Agrawal is my supervising physician. Patient management was discussed with my supervising physician Diagnostic Impression: Primary Impression: Headache Qualified Codes: R51 - Headache Additional Impressions: UTI (urinary tract infection) Qualified Codes: N30.00 - Acute cystitis without hematuria Chest pain Qualified Codes: R07.9 - Chest pain, unspecified ER Course The patient is a 32-year-old female presenting for headache and chest pain since yesterday Differential diagnosis include but not limited to ACS, PE,CHF, gastritis, migraine, among others PE: No apparent distress. A&Ox4 PERRL. EOMI. Normal mentation. RRR. No MRG Lungs CTA bilat Abdomen: Normal appearance. Non distended. No ecchymosis. Normal BS. Non TTP. No McBurney point tenderness. No guarding. Skin is warm and dry, no rashes. Labs: CBC unremarkable. Significantly improved Hgb. CMP unremarkable. Cardiac markers essentially negative UA: WBCs with some bacteria EKG unremarkable. The patient was informed of her results and will be discharged home. She will be treated for UTI. ER precautions are given Laboratory Tests Test 07/06/17 13:25 07/06/17 13:30 Urine Color Pale yellow Urine Appearance Slightly cloudy Urine pH 5 (4.5-8.0) Urine Specific [place] 1.020 (1.005-1.035) Urine Protein Negative (NEGATIVE) Urine Glucose (UA) Negative (NEGATIVE) Urine Ketones Negative (NEGATIVE) Urine Occult Blood 2+ (NEGATIVE) H Urine Nitrite Negative (NEGATIVE) Urine Bilirubin Negative (NEGATIVE) Urine Urobilinogen Normal MG/DL (0.0-1.0) Urine Leukocyte Esterase 2+ (NEGATIVE) H Urine RBC 2-4 /HPF (0 - 2) H Urine WBC 15-20 /HPF (0 - 2) H Urine Squamous Epithelial Cells Few /LPF (NONE/OCC) Urine Bacteria Few /HPF (NONE) Urine HCG, Qualitative Negative White Blood Count 7.5 K/UL (4.8-10.8) Red Blood Count 5.90 M/UL (4.20-5.40) H Hemoglobin 11.6 G/DL (12.0-16.0) L Hematocrit 40.2 % (37.0-47.0) Mean Corpuscular Volume 68 FL (80-99) L Mean Corpuscular Hemoglobin 19.6 PG (27.0-31.0) L Mean Corpuscular Hemoglobin Concent 28.7 G/DL (32.0-36.0) L Red Cell Distribution Width 17.0 % (11.6-14.8) H Platelet Count 360 K/UL (150-450) Mean Platelet Volume 6.1 FL (6.5-10.1) L Neutrophils (%) (Auto) 57.4 % (45.0-75.0) Lymphocytes (%) (Auto) 32.0 % (20.0-45.0) Monocytes (%) (Auto) 7.4 % (1.0-10.0) Eosinophils (%) (Auto) 2.3 % (0.0-3.0) Basophils (%) (Auto) 1.0 % (0.0-2.0) Prothrombin Time 9.5 SEC (9.30-11.50) Prothrombin Time INR 0.9 (0.9-1.1) PTT 28 SEC (23-33) Sodium Level 139 MMOL/L (136-145) Potassium Level 3.4 MMOL/L (3.5-5.1) L Chloride Level 101 MMOL/L (98-107) Carbon Dioxide Level 28 MMOL/L (21-32) Anion Gap 10 mmol/L (5-15) Blood Urea Nitrogen 11 mg/dL (7-18) Creatinine 0.6 MG/DL (0.55-1.30) Estimate Glomerular Filtration Rate > 60 mL/min (>60) Glucose Level 79 MG/DL (74-106) Calcium Level 8.4 MG/DL (8.5-10.1) L Total Bilirubin 0.5 MG/DL (0.2-1.0) Aspartate Amino Transferase (AST) 13 U/L (15-37) L Alanine Aminotransferase (ALT) 25 U/L (12-78) Alkaline Phosphatase 71 U/L (46-116) Creatine Kinase MB < 0.5 NG/ML (0.0-3.6) Troponin I 0.000 ng/mL (0.000-0.056) Total Protein 9.2 G/DL (6.4-8.2) H Albumin 4.3 G/DL (3.4-5.0) Globulin 4.9 g/dL Albumin/Globulin Ratio 0.9 (1.0-2.7) L Lipase 95 U/L (73-393) Lab Results Impression CBC unremarkable. Significantly improved Hgb. CMP unremarkable. Cardiac markers essentially negative UA: WBCs with some bacteria EKG Diagnostic Results EP Interpretation: NSR. No acute changes Rate: normal - 74 Rhythm: NSR ST Segments: no acute changes ASA given to the pt in ED: No PA Scribe Text EKG was reviewed and read with my supervising physician. No acute ST segment changes are seen. Normal rate and rhythm. No acute changes. Last Vital Signs Date Time Temp Pulse Resp B/P (MAP) Pulse Ox O2 Delivery O2 Flow Rate FiO2 07/06/17 15:08 98.1 20 117/80 99 Room Air 07/06/17 12:45 90 Status: improved Disposition: HOME, SELF-CARE Condition: Improved Scripts Nitrofurantoin Monohyd/M-Cryst* (MACROBID 100 MG*) 100 Mg Capsule 100 MG ORAL EVERY 12 HOURS, #14 CAP Prov: OTIS DEMARCO P.A. 07/06/17 Acetaminophen With Codeine (T#3) (TYLENOL #3 TAB*) Y Tab 1 TAB ORAL Q6HR Y for For Pain, #8 TAB Prov: TERJOESPHANOTIS P.A. 07/06/17 Ibuprofen* (MOTRIN*) 600 Mg Tablet 600 MG ORAL Q8H Y for For Pain, #30 TAB 0 Refills Prov: MARIBELANOTIS P.A. 07/06/17 Patient Instructions: Nonspecific Chest Pain Additional Instructions: I discussed my findings with the patient. All questions and concerns have been answered. Treatment and medication compliance have been addressed. I advised the patient that they need to follow up with PMD in 3-5 days. Return to ED if symptoms worsen, new symptoms arise, or if needed for any reason. Patient verbalized understanding of discharge instructions. OTIS DEMARCO Jul 06, 2017 22:45
--- NOTE | 2017-07-07 16:08 | Cardiology Report ---
APPROVED REPORT EKG Measurement Heart [id number] Normal sinus rhythm Normal ECG
== END 2017-07-06 15:09 | disposition home or self-care (01) ==
LOC: EMR 13:16
DX: R51 Headache (principal); N39.0 Urinary tract infection, site not specified; R07.9 Chest pain, unspecified
CPT/HCPCS: 36415; 80053; 81003; 81025; 82553; 83690; 84484; 85025; 85610; 85730; 86850; 86900; 86901; 87086; 87181; 93005; 96374; 96375; 99284; J1885; J2765

== ENCOUNTER 2018-08-30 08:30 | Emergency (ER) | payer MEDICAID ==
[~2018-08-30] VITALS: Ht 154.9 cm; Wt 80.3 kg
[2018-08-30 08:36] VITALS: BP 129/80
--- NOTE | 2018-08-30 08:38 | NUR ---
ED Nurse Note: pt walked in to ED due to pain on left side of back for 3 days. pt work as [employer]. no recent injury. per pt, pain gets worse. AAO x4. respirations even and non-labored noted. ambulatory with steady gait. will wait for the further order.
[2018-08-30 08:54] VITALS: BP 129/80
--- NOTE | 2018-08-30 08:54 | NUR ---
ER DISCHARGE NOTE: Patient is cleared to be discharged per ERMD, pt is aox4, on room air, with stable vital signs. pt was given dc instructions, pt was able to verbalize understanding, pt id band removed without complications. pt is able to ambulate with steady gait. pt took all belongings.
--- NOTE | 2018-08-30 13:02 | Emergency Room Report ---
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 and turning to the left she had increased pain to that area this happened yesterday Pain is worse with attempting to lift Otherwise denies any saddle paresthesia denies any lower extremity weakness or pain denies any upper extremity weakness Allergies: Coded Allergies: No Known Allergies (Unverified , 11/11/16) Patient History Past Medical History: see triage record Pertinent Family History: none Last Menstrual Period: hysterectomy done 2018 Reviewed Nursing Documentation: PMH: Agreed; PSxH: Agreed Nursing Documentation-PMH Past Medical History: No Stated History Hx Hypertension: No Hx Diabetes: No Review of Systems All Other Systems: negative except mentioned in HPI Physical Exam Vital Signs Date Time Temp Pulse Resp B/P (MAP) Pulse Ox O2 Delivery O2 Flow Rate FiO2 08/30/18 08:35 98.1 77 18 129/80 98 Room Air Sp02 EP Interpretation: reviewed, normal General Appearance: well appearing, no apparent distress Head: normocephalic, atraumatic Eyes: bilateral eye PERRL, bilateral eye EOMI ENT: hearing grossly normal, normal pharynx, TMs + canals normal, uvula midline Neck: full range of motion, supple, no meningismus, no bony tend Respiratory: lungs clear, normal breath sounds, no rhonchi, no respiratory distress, no retraction, no accessory muscle use Cardiovascular #1: normal peripheral pulses, regular rate, rhythm, no edema, no gallop, no JVD, no murmur Gastrointestinal: normal bowel sounds, non tender, soft, no mass, no organomegaly, non-distended, no guarding, no hernia, no pulsatile mass, no rebound Genitourinary: no CVA tenderness Musculoskeletal: other - Some discomfort palpable to the left paracervical thoracic spine T4 T5 T6 region no midline step-off Neurologic: oriented x3, responsive, 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, motor strength/ tone normal, sensory intact Psychiatric: mood/affect normal Skin: normal color, no rash, warm/dry, palpation normal Lymphatic: normal inspection, no adenopathy Medical Decision Making Diagnostic Impression: Primary Impression: Back pain Additional Impression: back sprain ER Course Patient's presentation history and exam is consistent with muscle skeletal sprain/strain consideration for other neurological, neurosurgical pathology is made however patient has a benign otherwise workup on exam and is stable for close follow-up Last Vital Signs Date Time Temp Pulse Resp B/P (MAP) Pulse Ox O2 Delivery O2 Flow Rate FiO2 08/30/18 08:54 98.1 77 18 129/80 98 Room Air Status: unchanged Disposition: HOME, SELF-CARE Condition: Stable Referrals: [facility],REFERRING (PCP) Departure Forms: Return to Work Return to Work in (Days): 2 Return to Work Date: Sep 01, 2018 Patient Instructions: Back Pain, Adult, Thoracic Strain Additional Instructions: Patient is provided with the discharge instructions notified to follow up with primary doctor in the next 2-3 days otherwise return to the er with any worsening symptoms. Please note that this report is being documented using [employer] technology. This can lead to erroneous entry secondary to incorrect interpretation by the dictating instrument. Mariela Evans DO Aug 30, 2018 13:02
== END 2018-08-30 09:01 | disposition home or self-care (01) ==
LOC: EMR 08:45
DX: S33.5XXA Sprain of ligaments of lumbar spine, initial encounter (principal); X50.1XXA Overexertion from prolonged static or awkward postures, initial encounter; Y92.89 Other specified places as the place of occurrence of the external cause
CPT/HCPCS: 99281

== ENCOUNTER 2018-11-10 20:50 | Emergency (ER) | payer MEDICAID, OTHER ==
[~2018-11-10] VITALS: Ht 154.9 cm; Wt 80.3 kg
[2018-11-10 21:10] VITALS: BP 128/93
--- NOTE | 2018-11-10 21:10 | NUR ---
ED Nurse Note: Pt arrived ambulatory to ED for complaint of intermittent chest pain that has been going on for approximately 4 hours. Pt states pain is located on left side of chest, sharp. Pain comes and goes even at rest. Numbness of felt on right arm and pt feels "pulling" around the jaw. Pt took a baby aspirin 4 hours ago. No further medications taken. VSS, labs drawn. Will continue to monitor.
--- NOTE | 2018-11-10 21:14 | Emergency Room Report ---
History of Present Illness General Chief Complaint: Chest Pain Source: Patient Present Illness HPI Patient is a 33-year-old female presented after increasing increased intermittent chest pain. Patient reports having prior history of hysterectomy. She had previously been anemic. Patient was noted to have no prior medical history and takes only vitamins. She states she been having intermittent episodes of left-sided chest discomfort. This did not radiate. Patient had similar symptoms in the past and had previous work-ups which were mostly negative. Patient was noted to have some prior anemia which is likely related to her previous history of fibroid uterus.Patient reports having some paresthesias to her right upper extremity. She denies any recent trauma. She reports having some alcohol use 2 days prior to arrival. She denies any bleeding currently. She denies any leg pain or swelling.She denied any change in the pain with exertion. She denies any positional changes. Allergies: Coded Allergies: No Known Allergies (Unverified , 11/11/16) Patient History Past Medical History: see triage record Last Menstrual Period: NA Reviewed Nursing Documentation: PMH: Agreed; PSxH: Agreed Nursing Documentation-PMH Past Medical History: No Stated History Hx Hypertension: No Hx Diabetes: No Review of Systems All Other Systems: negative except mentioned in HPI Physical Exam Vital Signs Date Time Temp Pulse Resp B/P (MAP) Pulse Ox O2 Delivery O2 Flow Rate FiO2 11/10/18 21:02 98.2 89 18 100 Room Air Sp02 EP Interpretation: reviewed, normal General Appearance: normal inspection, well appearing, no apparent distress, alert, GCS 15, non-toxic Head: atraumatic ENT: normal ENT inspection, hearing grossly normal, normal voice Neck: normal inspection, full range of motion, supple, no bony tend Respiratory: normal inspection, lungs clear, normal breath sounds, no respiratory distress, no retraction, no wheezing Cardiovascular #1: regular rate, rhythm, no edema Gastrointestinal: normal inspection, normal bowel sounds, non tender, soft, no guarding, no hernia Genitourinary: no CVA tenderness Musculoskeletal: normal inspection, back normal, normal range of motion Neurologic: normal inspection, alert, oriented x3, responsive, 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 Differential diagnosis include was not limited to myocardial infarction, pneumonia, pulmonary embolism, rheumatoid arthritis, among others. Because of complexity of patient's case laboratory testing and imaging studies were ordered. Patient was noted to have previous visits for chest pain in the past. Patient had previous negative work- ups. EKG interpreted by me showed normal sinus rhythm without acute ST or T wave changes. Patient does not have any known risk for pulmonary embolism. Patient's d-dimer was noted to be negative on laboratory testing. Patient's troponin was also noted to be negative. Patient was noted to be hemodynamically stable. She does not appear to be in any distress. She appears to be stable for outpatient work-up. Patient was advised to follow-up with cardiology as well as neurology. Patient was advised to return if she had any worsening condition or other concerns. Labs Test 11/10/18 21:10 White Blood Count 9.4 K/UL (4.8-10.8) Red Blood Count 5.07 M/UL (4.20-5.40) Hemoglobin 13.5 G/DL (12.0-16.0) Hematocrit 39.8 % (37.0-47.0) Mean Corpuscular Volume 79 FL (80-99) Mean Corpuscular Hemoglobin 26.6 PG (27.0-31.0) Mean Corpuscular Hemoglobin Concent 33.8 G/DL (32.0-36.0) Red Cell Distribution Width 11.9 % (11.6-14.8) Platelet Count 263 K/UL (150-450) Mean Platelet Volume 5.7 FL (6.5-10.1) Neutrophils (%) (Auto) 58.2 % (45.0-75.0) Lymphocytes (%) (Auto) 31.0 % (20.0-45.0) Monocytes (%) (Auto) 8.1 % (1.0-10.0) Eosinophils (%) (Auto) 1.9 % (0.0-3.0) Basophils (%) (Auto) 0.9 % (0.0-2.0) D-Dimer 0.23 mg/L FEU (0.00-0.49) Sodium Level 138 MMOL/L (136-145) Potassium Level 3.7 MMOL/L (3.5-5.1) Chloride Level 102 MMOL/L (98-107) Carbon Dioxide Level 26 MMOL/L (21-32) Anion Gap 10 mmol/L (5-15) Blood Urea Nitrogen 8 mg/dL (7-18) Creatinine 0.6 MG/DL (0.55-1.30) Estimat Glomerular Filtration Rate > 60 mL/min (>60) Glucose Level 81 MG/DL (74-106) Calcium Level 8.9 MG/DL (8.5-10.1) Total Bilirubin 0.4 MG/DL (0.2-1.0) Aspartate Amino Transf (AST/SGOT) 14 U/L (15-37) Alanine Aminotransferase (ALT/SGPT) 25 U/L (12-78) Alkaline Phosphatase 61 U/L (46-116) Total Creatine Kinase 59 U/L (26-308) Creatine Kinase MB < 0.5 NG/ML (0.0-3.6) Creatine Kinase MB Relative Index 0.8 Troponin I 0.000 ng/mL (0.000-0.056) Total Protein 7.8 G/DL (6.4-8.2) Albumin 3.8 G/DL (3.4-5.0) Globulin 4.0 g/dL Albumin/Globulin Ratio 0.9 (1.0-2.7) Lipase 80 U/L (73-393) EKG Diagnostic Results Rate: normal Rhythm: NSR ST Segments: no acute changes Last Vital Signs Date Time Temp Pulse Resp B/P (MAP) Pulse Ox O2 Delivery O2 Flow Rate FiO2 11/10/18 21:02 98.2 89 18 100 Room Air Status: improved Disposition: HOME, SELF-CARE Condition: Stable Scripts Ibuprofen* (MOTRIN*) 600 Mg Tablet 600 MG ORAL Q8H PRN for For Pain, #30 TAB 0 Refills Prov: Jeff Bedolla MD 11/10/18 Jeff Bedolla MD November 10, 2018 21:14
[2018-11-10 21:30] LABS: BASOPHILS % (AUTO) 0.9 % (0.0-2.0); EOSINOPHILS % (AUTO) 1.9 % (0.0-3.0); HEMATOCRIT 39.8 % (37.0-47.0); HEMOGLOBIN 13.5 G/DL (12.0-16.0); MEAN CORPUSCULAR VOLUME 79 FL (80-99); MONOCYTES % (AUTO) 8.1 % (1.0-10.0); NEUTROPHILS % (AUTO) 58.2 % (45.0-75.0); PLATELET COUNT 263 K/UL (150-450); RED BLOOD COUNT 5.07 M/UL (4.20-5.40); RED CELL DISTRIBUTION WIDTH 11.9 % (11.6-14.8); WHITE BLOOD COUNT 9.4 K/UL (4.8-10.8)
[2018-11-10 21:33] LABS: ANION GAP 10 mmol/L (5-15); BLOOD UREA NITROGEN 8 mg/dL (7-18); CALCIUM 8.9 MG/DL (8.5-10.1); CARBON DIOXIDE 26 MMOL/L (21-32); CHLORIDE 102 MMOL/L (98-107); CREATININE 0.6 MG/DL (0.55-1.30); POTASSIUM 3.7 MMOL/L (3.5-5.1); SODIUM 138 MMOL/L (136-145)
[2018-11-10 21:46] LABS: ALANINE AMINOTRANSFERASE 25 U/L (12-78); ALBUMIN 3.8 G/DL (3.4-5.0); ALBUMIN/GLOBULIN RATIO 0.9 (1.0-2.7); ALKALINE PHOSPHATASE 61 U/L (46-116); ASPARTATE AMINO TRANSFERASE 14 U/L (15-37); BILIRUBIN,TOTAL 0.4 MG/DL (0.2-1.0); CKMB < 0.5 NG/ML (0.0-3.6); CREATINE KINASE 59 U/L (26-308)
[2018-11-10] MEDS ORDERED: IBUPROFEN600 MG ORAL (22:40)
--- NOTE | 2018-11-10 22:46 | NUR ---
ED Nurse Note: Pt cleared by . Pt A/Ox4, ambulatory with steady gait. VSS. Discharge paperwork provided. Pt verbalized understanding of all instructions. All belongings taken with patients. ID band and IV removed.
[2018-11-10 22:47] VITALS: BP 131/96
--- NOTE | 2018-11-11 12:20 | Diagnostic Imaging Report ---
Indication: Dyspnea Comparison: 11/05/2016 A single view chest radiograph was obtained. Findings: Cardiomediastinal appearance is within normal limits for age. The lungs are clear. Pulmonary vascularity is appropriate. The diaphragmatic contour is smooth and costophrenic angles are sharp. No pleural effusions are identified. The bones are unremarkable. Impression: No acute findings
--- NOTE | 2018-11-11 14:18 | Cardiology Report ---
APPROVED REPORT EKG Measurement Heart [id number] Normal sinus rhythm Nonspecific T wave abnormality Abnormal ECG
== END 2018-11-10 22:48 | disposition home or self-care (01) ==
LOC: EMR 21:27
DX: R07.89 Other chest pain (principal)
CPT/HCPCS: 36415; 71045; 80053; 82550; 82553; 83690; 84484; 85025; 85379; 86850; 86900; 86901; 93005; 99284